=== PATIENT | female | born 1995 | race American Indian/Alaskan Native ===

== ENCOUNTER 2017-11-06 00:13 | Emergency (ER) | payer SELFPAY ==
[2017-11-06] MEDS ORDERED: ADRENALIN SUB-Q ONE (00:32)
[2017-11-06] MEDS ORDERED: NACL 0.9% 1000 ML 1,000 ML IV ONE (00:32)
[2017-11-06] MEDS ORDERED: BENADRYL IV ONE (00:32)
--- NOTE | 2017-11-06 00:45 | Emergency Department Report ---
ED Allergic Reaction HPI - General Stated complaint: ALLERGIC REACTION Time Seen by Provider: 11/06/17 00:32 Source: patient - History of Present Illness Initial Comments: Patient said that an hour before arrival she developed hives all over her body. This started after she was eating a fried chicken sandwich. She took 50 mg by mouth Benadryl, but it did not help. Her lips started swelling and she developed shortness of breath. So, she was brought to the ER by EMS. 4 months ago, patient had a severe allergic reaction to where she required multiple rounds of epinephrine and was ultimately intubated. The patient was prescribed an EpiPen and given follow-up with an shrimp trawler, but she does not have any insurance. So, she has not been able to pursue that treatment plan. MD Complaint: allergic reaction, facial swelling - Related Data Previous Rx's Medication Instructions Recorded Last Taken Type EPINEPHrine [Epipen] 0.3 mg IJ DAILY PRN #1 [email or web address] 11/06/17 Unknown Rx Allergies Allergy/AdvReac Type Severity Reaction Status Date / Time No Known Allergies Allergy Unverified 11/06/17 00:58 ED Review of Systems ROS: Stated complaint: ALLERGIC REACTION Other details as noted in HPI Comment: All other systems reviewed and negative ENT: other (throat swelling) Respiratory: SOB at rest Gastrointestinal: nausea Skin: rash, pruritus ED Past Medical Hx - Medications Home Medications: Home Medications Medication Instructions Recorded Confirmed Last Taken Type EPINEPHrine [Epipen] 0.3 mg IJ DAILY PRN #1 [email or web address] 11/06/17 Unknown Rx ED Physical Exam - General General appearance: alert, in no apparent distress - Head Head exam: Present: atraumatic, normocephalic - Eye Eye exam: Present: normal appearance - ENT ENT exam: Present: normal orophraynx, mucous membranes moist, other (lips swollen) - Neck Neck exam: Present: normal inspection - Respiratory Respiratory exam: Present: normal lung sounds bilaterally. Absent: respiratory distress, wheezes - Cardiovascular Cardiovascular Exam: Present: regular rate, normal rhythm. Absent: systolic murmur, diastolic murmur, rubs, gallop - GI/Abdominal GI/Abdominal exam: Present: soft, normal bowel sounds. Absent: tenderness - Extremities Exam Extremities exam: Present: normal inspection - Back Exam Back exam: Present: normal inspection - Neurological Exam Neurological exam: Present: alert, oriented X3 - Psychiatric Psychiatric exam: Present: normal affect, normal mood - Skin Skin exam: Present: warm, dry, intact, normal color, rash, urticaria (diffuse) ED Course Vital Signs 11/06/17 11/06/17 00:21 01:00 Temperature 97.1 F L Pulse Rate 107 H Respiratory 18 Rate Blood Pressure 119/48 O2 Sat by Pulse 97 90 Oximetry ED Medical Decision Making - Medical Decision Making 21-year-old female with past medical history of anaphylaxis requiring intubation but presents to the ER with allergic reaction. Vital signs significant for tachycardia at time of presentation. On exam, patient with swollen face, diffuse hives, abdominal upset. Due to concern of anaphylaxis, I gave the patient Solu-Medrol/Benadryl/Pepcid/epinephrine. Patient will receive a liter of IV fluids. She'll be monitored in the ER for 2-3 hours. On my reevaluation an hour after administering medication, she feels improved. The patient continues to improve, she will likely go home. I called the pharmacist to see if it's possible to give the patient an EpiPen to go home with since she says she cannot afford one [id number]. The pharmacist informed me that there is not a program at the hospital, which will allow for this. I will ask the psychosocial rehabilitation counselor to contact her to try to help her get insurance in order to help manage her allergies. This patient was signed out to another emergency room physician. - Differential Diagnosis contact dermatitis, allergic reaction, anaphylaxis Critical Care Time: Yes Critical care time in (mins) excluding proc time.: 35 Critical care attestation.: If time is entered above; I have spent that time in minutes in the direct care of this critically ill patient, excluding procedure time. ED Disposition Clinical Impression: Anaphylaxis Disposition: Z MED SCREENING EXAM-CONT Is pt being admited?: No Condition: Stable Instructions: Anaphylaxis (ED) Additional Instructions: Take a daily 10 mg zyrtec until your hives have resolved. This can be purchased over the counter. If you develop hives again, take 50 mg benadryl. If symptoms haven't improved in an hour, take another 50 mg benadryl and call 911. IF you feel like your symptoms are worsening, call 911. They have epipens on the ambulance. Prescriptions: EPINEPHrine [Epipen] 0.3 mg IJ DAILY PRN #1 [email or web address] PRN Reason: Anaphylaxis
[2017-11-06] MEDS ORDERED: PEPCID IV ONE (02:09)
[2017-11-06 03:49] VITALS: BP 109/71
== END 2017-11-06 04:48 | disposition home or self-care (01) ==
LOC: ED 00:13
DX: T78.09XA Anaphylactic reaction due to other food products, initial encounter (principal)
CPT/HCPCS: 96372; 96374; 96375; 99291; J0171; J1200; J2930; J7030; 96361